=== PATIENT | female | born 1975 | race Hispanic/Latino ===

== ENCOUNTER → 2024-08-08 | Outpatient (CLI) | payer OTHER ==
[~2024-08-08] MED LIST: GADOTERATE MEGLUMINE 10 MMOL/20 ML VIAL IV ONE
--- NOTE | 2024-08-08 16:48 | HMCIMG ---
MRI BREAST [facility] HISTORY: Lung at 9:00 COMPARISON: None TECHNIQUE: MRI of the bilateral breasts was performed utilizing multiple pulse sequences in axial, coronal and sagittal planes. Patient was given 20 cc of Clariscan through intravenous route. Dynamic imaging technique was used. FINDINGS: Scattered fibroglandular tissue is seen of both breasts. No evidence of mass lesion or abnormal enhancement is seen. No nipple retraction or skin thickening is seen. IMPRESSION: 1. No mass lesion or abnormal enhancement is seen.
== END | disposition home or self-care (01) ==
LOC: RAH 14:41
PROVIDERS: ATTEND Family Medicine
DX: R92.323 Mammographic fibroglandular density, bilateral breasts (principal); R59.0 Localized enlarged lymph nodes
CPT/HCPCS: 77049; A9575